=== PATIENT | female | born 1980 | race Caucasian/White ===

== ENCOUNTER → 2016-09-14 | Outpatient (CLI) | payer OTHER ==
[~2016-09-14] MED LIST: BUPIVACAINE MPF 0.5% 10 ML VIAL for KCIC. IJ ONE; IOHEXOL 300 MG/ML 10ML VIAL. INT ART ONE; LIDOCAINE 1% Multi-Dose 20 ML VIAL. ID ONE; methylPREDNISolone ACETATE 40 MG/ML VIAL. INT ART ONE
--- NOTE | 2016-09-14 14:36 | KCIC ---
PROCEDURE Therapeutic left iliopsoas injection using fluoroscopic guidance. HISTORY [Hip pain.] ?Left iliopsoas tendinitis. Pain. Fracture November 2015 with left hip replacement. TECHNIQUE The procedure was explained to the patient as were potential risks, including among others infection, bleeding, allergic reaction or nerve infiltration. All questions were answered. Informed written consent was obtained. The anterior hip was prepped and draped in the usual sterile manner. Following administration of local anesthetic, a 22-gauge spinal needle was advanced to the expected location of the iliopsoas tendon sheath, using anatomic landmarks, and with care to avoid neurovascular structures. Stylet was removed and following negative aspiration, appropriate position was confirmed with 2 cc Omnipaque 300 contrast. A mixture of 1 cc (80 mg) Depo-Medrol, 3.5 cc 0.5% Marcaine and 3.5 cc 1% lidocaine were injected without difficulty. The needle was removed. There was good hemostasis at the injection site. The patient left in stable condition without immediate complication. The patient was given postprocedural instructions, instructed to contact us or the emergency room if there are any complications. A single spot image was obtained. FLUOROSCOPY TIME 1 minute 11 seconds Electronically signed by: Keanu Ventura MD (09/14/2016 2:33 PM)
== END | disposition home or self-care (01) ==
LOC: KCIC 12:53
PROVIDERS: ATTEND Orthopaedic Surgery Adult Reconstructive Orthopaedic Surgery
DX: M76.12 Psoas tendinitis, left hip (principal); M25.552 Pain in left hip
CPT/HCPCS: 20610; 77002; J1030